=== PATIENT | female | born 1940 | race Caucasian/White ===

== ENCOUNTER 2021-05-29 10:04 | Inpatient (IN) | payer OTHER ==
[~2021-05-29] VITALS: Ht 149.9 cm; Wt 54.0 kg
[2021-05-29 10:06] VITALS: BP 114/56
[2021-05-29 10:25] LABS: ABSOLUTE NEUTROPHILS 14.5 thou/uL (1.4-8.2); BASOPHILS 1.1 % (0.0-2.0); HEMATOCRIT 34.7 % (37.0-47.0); HEMOGLOBIN 11.1 gm/dL (12.0-15.0); LYMPHOCYTES 3.3 % (24.0-44.0); MCH 28.4 pg (26.0-34.0); MCHC 31.9 g/dL (28.0-37.0); MCV 89.2 fL (80.0-100.0); PLATELET COUNT 216 thou/uL (150-400); POLYS 91.6 % (36.0-66.0); RBC 3.89 mil/uL (4.20-5.00); RDW 14.6 % (10.5-14.5); WBC 15.9 thou/uL (4.0-11.0)
--- NOTE | 2021-05-29 10:38 | NUR ---
Pt arrives by EMS from home c/o of SOA and occasional left sided chest pain. EMS reports pt was 80% on RA, no hx of home oxygen. Pt placed on 4L NC. Pt Hypertensive enroute for EMS. 2 nitro given, 324 ASA and 200NS given enroute by EMS. EKG initiated and completed on arrival to ED, ED provider and teacher at bedside to R/O IL. Consumer Marketing Manager R/O IL, reports irregular HR. Pt is alert and oriented x4, GCS15. Able to voice needs. VSS. Hx of left lung cancer, left lung removed.
[2021-05-29 11:34] LABS: ALBUMIN 3.2 g/dL (3.4-5.0); CALCIUM 9.3 mg/dL (8.5-10.1); CREATININE 0.9 mg/dL (0.6-1.0); POTASSIUM 3.9 mmol/L (3.5-5.1); TOTAL BILIRUBIN 1.3 mg/dL (0.2-1.0); TOTAL PROTEIN 7.2 g/dL (6.4-8.2)
--- NOTE | 2021-05-29 11:58 | NUR ---
REQUESTED HOSPITAL RECORDS FROM [facility], LAST ECO DONE DIRECTED FROM KAVEH CÁRDENAS NP. PT SIGNED FORM AND FAXED VIA MARKETING COMMUNICATIONS LEADER.
--- NOTE | 2021-05-29 12:19 | EKG ---
[address] [place] [address] ELECTROCARDIOGRAM REPORT Name: AMAURI BERNABE JO Room #: 170-8 ADM IN M.R.#: [id number] Admission: 05/29/21 Attend Phys: Romario Phelps MD Discharge: Date of : 40 Report #: [id number] [facility] ED Test Date: 2021-05-29 Test Time: 10:03:40 Pat Name: AMAURI BERNABE Department: Room: 170 Gender: F Supplier Specialist: BRANDT : 1940 Requested By: Devon Santiago Order Number: [id number] MD: Bud Hicks Measurements Intervals [place] Rate: 90 P: [place]: QRS: 94 QRSD: 90 T: 22 QT: 376 QTc: 460 Interpretive Statements Atrial fibrillation Right axis deviation Consider left ventricular hypertrophy Compared to ECG 02/17/2001 10:33:32 Right-axis deviation now present Early repolarization now present Possible ischemia now present Sinus rhythm no longer present ST (T wave) deviation no longer present Electronically Signed On 05-29-2021 12:19:41 CASSANDRA ARCHITECT by Bud Hicks [email or web address] <ELECTRONICALLY SIGNED> By: Bud Hicks MD, FAC 05/29/21 1219 1003 1003 Bud Hicks MD, FAC /EPI
--- NOTE | 2021-05-29 14:38 | 2DMMODE ---
[facility] [place] [address] 2 D/M-MODE ECHOCARDIOGRAM Name: AMAURI BERNABE Room #: 170-8 ADM IN M.R.#: [id number] Admission: 05/29/21 Attend Phys: Romario Phelps MD Discharge: Date of : 40 Report #: [id number] THIS REPORT FOR: cc: Sonny Eubanks James L. DO Lundgren, Craig H. MD [facility] ~ APPROVED REPORT Study performed: 05/29/2021 13:29:14 EXAM: Comprehensive 2D, Doppler, and color-flow Echocardiogram Patient Location: ER Status: routine BSA: 1.46 HR: 78 bpm BP: 119/44 mmHg Rhythm: NSR Other Information Study Quality: Adequate (off axis images, left pneumonectomy) Indications NSTEMI, New onset AFib, short of breath. Hx: Murmur, lung cancer, HTN. 2D Dimensions RVDd: 31.80 mm IVSd: 9.38 (7-11mm) LVOT Diam: 19.23 (18-24mm) LVDd: 51.16 mm PWd: 8.05 (7-11mm) LVDs: 37.21 (25-40mm) Left Atrium: 46.04 (27-40mm) Volumes Left Atrial Volume (Systole) Single Plane 4CH: 74.46 mL Single Plane 2CH: 81.59 mL LA ESV Index: 57.00 mL/m2 Aortic Valve AoV Peak Neeraj.: 2.83 m/s AO Peak Gr.: 31.96 mmHg LVOT Max P.47 mmHg AO Mean Gr.: 16.62 mmHg [facility] [address] [place] [address] 2 D/M-MODE ECHOCARDIOGRAM Name: AMAURI BERNABE JO Room #: 170-8 [facility] IN [facility].#: [id number] Admission: 05/29/21 Attend Phys: Romario Phelps MD Discharge: Date of : 40 Report #: [id number] AO V2 Mean: 1.95 m/s LVOT Max V: 1.27 m/s AO V2 VTI: 51.31 cm LANDON Vmax: 1.31 cm2 Mitral Valve E/A Ratio: 0.9 MV Decel. Time: 167.88 ms MV E Max Neeraj.: 1.04 m/s MV A Neeraj.: 1.15 m/s MV PHT: 48.68 ms IVRT: 110.73 ms Pulmonary Valve PV Peak Neeraj.: 1.37 m/s PV Peak Gr.: 7.55 mmHg Tricuspid Valve TR Peak Neeraj.: 3.18 m/s TR Peak Gr.: 40.48 mmHg Left Ventricle The left ventricle is normal size. There is normal LV segmental wall motion. Mild basal septal hypertrophy is present. Left ventricular systolic function is normal. LVEF is 60%. Mild diastolic dysfunction Right Ventricle The right ventricle is normal size. The right ventricular systolic function is normal. Atria Left atrium is severely dilated. The right atrium size is normal. Aortic Valve Aortic valve is moderately calcified, trileaflet. Moderate stenosis, no insufficiency No aortic regurgitation is present. Calculated aortic valve area is 1.3 (maximum pressure gradient of 32 mmHg and mean pressure gradient of 17 mmHg). Mitral Valve Moderate mitral annular calcification. Severe mitral regurgitation No evidence of mitral valve stenosis. Tricuspid Valve The tricuspid valve is normal in structure. Moderate tricuspid regurgitation. Estimated pulmonary artery pressure of [facility] [address] [place] [address] 2 D/M-MODE ECHOCARDIOGRAM Name: AMAURI BERNABE JO Room #: 170-8 ADM IN M.R.#: [id number] Admission: 05/29/21 Attend Phys: Romario Phelps MD Discharge: Date of : 40 Report #: [id number] 50mmHg Pulmonic Valve The pulmonary valve is normal in structure. Trace pulmonic regurgitation. Great Vessels The aortic root is normal in size. Ascending aorta is not well visualized. IVC is not visualized. Pericardium There is no pericardial effusion. <Conclusion> Left ventricular systolic function is normal. There is normal LV segmental wall motion. LVEF is 60%. Mild diastolic dysfunction Left atrium is severely dilated. Aortic valve is moderately calcified, trileaflet. Moderate stenosis, no insufficiency Calculated aortic valve area is 1.3 (Peak gradient of 32 mmHg, mean pressure gradient of 17 mmHg). Moderate mitral annular calcification. Severe mitral regurgitation Moderate tricuspid regurgitation. Estimated pulmonary artery pressure of 50mmHg There is no pericardial effusion. <ELECTRONICALLY SIGNED> By: Dangelo Hayes MD, FACC 05/29/21 1438 1438 1438 Dangelo Hayes MD, FACC /INF
[2021-05-29 15:20] LABS: BE(vivo) -5.2 mmol/L (-2 to +3); PCO2 49.9 mmHg (35.0-45.0); pH 7.262 (7.360-7.450); sO2 84.5 % (92.0-98.0)
[2021-05-29 20:12] VITALS: BP 118/69
--- NOTE | 2021-05-29 20:16 | NUR ---
PT WOULD LIKE HER 2 CONTACT PEOPLE TO BE KELLY BERNABE (QUYNH) AND GRACE LOPEZ (GARTH).
[2021-05-29 22:07] LABS: HEMATOCRIT 32.7 % (37.0-47.0); HEMOGLOBIN 10.7 gm/dL (12.0-15.0); MCH 28.9 pg (26.0-34.0); MCHC 32.8 g/dL (28.0-37.0); MCV 88.2 fL (80.0-100.0); RBC 3.7 mil/uL (4.20-5.00); RDW 14.6 % (10.5-14.5); WBC 17.3 thou/uL (4.0-11.0)
[2021-05-29 22:33] LABS: APTT 26.5 Seconds (24.5-32.8); PROTIME 10.2 Seconds (9.3-11.4)
[2021-05-30] VITALS (21 sets, daily range): BP systolic 71–131; BP diastolic 31–79
--- NOTE | 2021-05-30 01:00 | NUR ---
PT STATES SHE HAS NOT VOIDED SINCE COMING TO ER. SHE DENIES ANY DISCOMFORT OR URGE TO VOID. BLADDER SCANNED AMOUNT 462ML. NOTIFIED RECEIVING VETERINARY VIRUS SERUM INSPECTOR, WHO WILL NOTIFY HOSPITALIST OF URINARY RETENTION.
--- NOTE | 2021-05-30 01:03 | NUR ---
REPORT CALLED TO WILLIE LARSON IN ICU.
--- NOTE | 2021-05-30 05:01 | NUR ---
PT ADM TO ICU AT 0140, ADM REPORT RECEIVED BY THIS RN FROM ED RN, KAVEH. ALL ADM ITEMS ON ADM CHECKLIST COMPLETED AND INITIALLED. PT IS A&O x4, FOLLOWS COMMANDS AND ANSWERED ALL ADMITTING QUESTIONS APPROPRIATELY. PT HAD URINE RESIDUAL PER ED REPORT. PT VOIDED UPON ARRIVAL TO ICU.
--- NOTE | 2021-05-30 06:25 | NUR ---
Pt's grandson Jl Chambers called by this RN he was updateD on the pt's condition and poc. he was notified of pt's location to ICU
--- NOTE | 2021-05-30 07:39 | NUR ---
Lab was called by this RN for appt labs drawing. this RN was notified that somebody is already on their way
--- NOTE | 2021-05-30 07:42 | NUR ---
PT TAKEN DOWN TO PARTY PLAN SALES HOST/HOSTESS AT THIS TIME WITH RT AND PARTY PLAN SALES HOST/HOSTESS RN, CONSENTS SIGNED.
--- NOTE | 2021-05-30 08:01 | EKG ---
[address] [place] [address] ELECTROCARDIOGRAM REPORT Name: ARTHUR BERNABETY JO Room #: 243-P ADM IN M.R.#: [id number] Admission: 05/29/21 Attend Phys: Romario Phelps MD Discharge: Date of : 40 Report #: [id number] [facility] ED Test Date: 2021-05-29 Test Time: 15:25:40 Pat Name: AMAURI BERNAEB Department: Room: 243 Gender: F Inpatient Coder: REED : 1940 Requested By: Romario Phelps Order Number: [id number] MD: Bud Hicks Measurements Intervals [place] Rate: 140 P: 0 MO: 304 QRS: 68 QRSD: 110 T: 85 QT: 298 QTc: 455 Interpretive Statements Suspec Atrial Flutter LVH with secondary repolarization abnormality Baseline wander in lead(s) V2,V5 Compared to ECG 05/29/2021 10:03:40 Right-axis deviation no longer present Electronically Signed On 05-30-2021 8:01:17 MACHINE SET UP by Bud Hicks [email or web address] <ELECTRONICALLY SIGNED> By: Bud Hicks MD, [facility] 05/30/21 0801 1525 1525 Bud Hicks MD, [facility] /EPI
--- NOTE | 2021-05-30 09:08 | NUR ---
change in condition, on bipap, possible going to need to be intubated. MD's, resp therapy, QUALITY CONTROL SYSTEMS MANAGER's and nurses in room. CM tried to call grandson roel, unable to leave a message related to voice mail is full. Spouse number [phone] provided by prenatal teacher . Spouse notified by the prenatal teacher, he is on his way and lives in [facility]
[2021-05-30 09:24] LABS: BE(vivo) 4.2 mmol/L (-2 to +3); HCO3 37.6 mmol/L (22.0-26.0); PCO2 144.7 mmHg (35.0-45.0); PO2 42.8 mmHg (80.0-100.0); pH 7.033 (7.360-7.450)
--- NOTE | 2021-05-30 10:44 | NUR ---
PT CAME BACK FROM [facility] AT APPROX 0845 ON BIPAP MACHINE AT 100% PT PULSE OX READS 73% WITH BP READING 60'S OVER 40'S. PT STARTED ON DOPAMINE GTT PER MANAGER CORE FROM [facility]. DR. RIVERA AT BEDSIDE AT 0855, APPROVES PHENLYEPHRINE GTT, WITH NO IMPROVEMENT IN HR &BP AFTER 2 PRESSORS. PT THEN STARTED ON NOREPINEPHRINE AND EPI GTT WELL RECEIVING 3 DOSES OF 1MG 1:10,000 EPI IV PUSH AND 2 AMPS OF SODIUM BICARD IVP WELL. PT CONTINUED TO DECLINE BECOMING MORE AND MORE HYPOTENSIVE AND BRADYCARDIAC. ART PLACED IN LEFT WRIST AT BEDSIDE BY DR. RIVERA, PT STILL REMAINS HYPOTENSIVE AND DEOXYGENATING. PT WAS A DNR AND BECAME PULSELESS WITH BEING PRONOUNCED AT 0940 05/30/[address] RIVERA. FAMILY NOTIFIED AND ARRIVED AT BEDSIDE SHORTLY AFTER BEING PRONOUNCED. FAMILY GATHERED PATIENT BELONINGS. NETWORK RELATIONS CONSULTANT AT BEDSIDE WELL. PT FAMILY REQUEST TO HAVE PATIENT TAKEN TO [facility] IN [place], [place]. PT RETURNED FROM CATH WITH INCISION SITE IN RIGHT GROIN, ACCORDING TO MD PT HAD A COMPLETE BLOCK OF LEFT MAIN AND WAS INOPERABLE AND UNSURVIABLE DO TO PATIENT'S ILLNESS AND DNR.
--- NOTE | 2021-05-30 12:04 | NUR ---
TIME OF PRONOUNCED BY DR RIVERA AT 0940 AM ON 05/30/21. PT GRANDSON AT BEDSIDE.
--- NOTE | 2021-05-30 12:53 | CATHLAB ---
[facility] [place] [address] INVASIVE PROCEDURE REPORT Name: AMAURI BERNABE Room #: 243-P DIS IN M.R.#: [id number] Admission: 05/29/21 Attend Phys: Romario Phelps MD Discharge: 05/30/21 Date of : 40 Report #: [id number] THIS REPORT FOR: cc: Sonny Eubanks James L. DO Lundgren, Craig H. MD [facility] ~ APPROVED REPORT Study performed: 05/30/2021 07:33:07 Patient Details Patient Status: In-Patient Room #: 243 The patient is a 80 year-old female Event Personnel Dangelo Hayes Warehouse Worker, Lovely Chance RN RN, Renu Aragon Partnoy, Nancy RTR, POKER ROOM MANAGER Monitor Procedures Performed Art Access - R femoral artery* Coronary Angiography Only 1226032 CORANG Hemostasis w/ Mynx 21341 Initial Mod Sed Same Phys/QHP Gr5y 030135 55098 Mod Sed Same Phys/QHP Ea 308618 Indication Dyspnea, Chest pain Procedure Narrative The patient was brought urgently to the Cardiac Catheterization Laboratory and was prepped and draped in a sterile manner. The Right Groin^ was infiltrated with 1% Lidocaine subcutaneous anesthesia. A PINNACLE 6FR Sheath #[id number] sheath was inserted into the RFA^. Coronary angiography was performed using coronary diagnostic catheters. The right coronary system was accessed and visualized with a JR4 catheter. The left coronary system was accessed and visualized with a JL4 catheter. Closure device was deployed with a 6 Fr MYNXGRIP 6/7F #[id number]. The patient tolerated the procedure well and there were no complications associated with the procedure. There was no hematoma. Intraoperative Conscious Sedation Sedation start time: 07:57 Case end Time: 08:28 Fentanyl 25 mcg Versed 0.5 mg [facility] [place] [address] INVASIVE PROCEDURE REPORT Name: AMAURI BERNABE JO Room #: 243-P [facility] IN M.R.#: [id number] Admission: 05/29/21 Attend Phys: Romario Phelps MD Discharge: 05/30/21 Date of : 40 Report #: [id number] Fluoro Time: 1.80 minutes Dose: DAP 1785.40 cGycm2 264 mGy Contrast Type and Amount: Visipaque 20 ml Coronary Angiography The patient's coronary anatomy is right dominant. Diagnostic Cath Left Main 90% distal left main stenosis LAD 90% ostial LAD stenosis Calcified 70% mid LAD stenosis Circumflex 99% ostial circumflex stenosis Right Coronary Dominant right coronary with mild to moderate, scattered 30-40% proximal mid and distal plaquing R PDA Large posterior descending, normal RPLV Mild plaquing and a large posterolateral branch Hemodynamics The aortic pressure is 127/73 mmHg with a mean of 96 mmHg. Conclusion 1. Normal left ventricular systolic function with moderate aortic stenosis and severe mitral insufficiency 2. Critical distal left main stenosis with extension into the ostia of the LAD and circumflex 3. Moderate diffuse right coronary artery plaquing, right dominant Recommendations Valve Surgery CABG <ELECTRONICALLY SIGNED> By: Dangelo Hayes MD, FACC 05/30/21 1253 1253 1253 Dangelo Hayes MD, FACC /INF
== END 2021-05-30 09:40 ==
LOC: ER 10:04 → EROBS 11:55 → ICU 05-30 01:21
PROVIDERS: Emergency Medicine; Internal Medicine; Pediatrics; ADMIT Internal Medicine; ATTEND Internal Medicine
DX: I21.4 Non-ST elevation (NSTEMI) myocardial infarction (principal); J18.9 Pneumonia, unspecified organism; J96.01 Acute respiratory failure with hypoxia; I50.33 Acute on chronic diastolic (congestive) heart failure; J96.02 Acute respiratory failure with hypercapnia; I38 Endocarditis, valve unspecified; D68.59 Other primary thrombophilia; Z20.822 Contact with and (suspected) exposure to COVID-19; E78.5 Hyperlipidemia, unspecified; Z66 Do not resuscitate; I10 Essential (primary) hypertension; R53.81 Other malaise; I27.20 Pulmonary hypertension, unspecified; D64.9 Anemia, unspecified; R57.0 Cardiogenic shock; I48.0 Paroxysmal atrial fibrillation; I05.2 Rheumatic mitral stenosis with insufficiency; I25.110 Atherosclerotic heart disease of native coronary artery with unstable angina pectoris; Z88.6 Allergy status to analgesic agent; Z85.118 Personal history of other malignant neoplasm of bronchus and lung; Z91.041 Radiographic dye allergy status
CPT/HCPCS: 85026